=== PATIENT | male | born 1955 | race African-American/Black ===

== ENCOUNTER 2021-02-09 11:11 | Observation (INO) | payer OTHER ==
[2021-02-09] MEDS ORDERED: SODIUM CHLORIDE 1,000 ML IV STA (12:44)
[2021-02-09 13:54] LABS: BASO % 0.7 % (0-2.0); HEMATOCRIT 46.1 % (35.4-49); HEMOGLOBIN 15.8 GM/dL (11.7-16.9); LYMPH % 5.9 % (8-40); MCHC 34.2 g/dl (32.0-35.9); MEAN CELL VOLUME 90.7 fl (80-96); MEAN PLT VOLUME 8.5 fl (7.5-11.1); MONO % 11.6 % (3.8-10.2); NEUT % 81.8 % (42.8-82.8); PLATELET COUNT 128 10^3/uL (134-434); RBC 5.08 M/mm3 (4.00-5.60); RDW 13.6 % (11.9-15.9); WHITE BLOOD COUNT 4.1 K/mm3 (4.0-10.0)
[2021-02-09 14:16] LABS: SODIUM 141 mmol/L (136-145)
[2021-02-09 14:17] LABS: CALCIUM 9.5 mg/dL (8.5-10.1)
[2021-02-09 14:18] LABS: BLOOD UREA NITROGEN 27.1 mg/dL (7-18); CO2 30 mmol/L (21-32); GLUCOSE,RANDOM 83 mg/dL (74-106)
[2021-02-09 14:21] LABS: CREATININE 1.5 mg/dL (0.55-1.3); SGOT/AST 52 U/L (15-37); SGPT/ALT 64 U/L (13-61)
[2021-02-09 14:23] LABS: BILIRUBIN,TOTAL 0.6 mg/dL (0.2-1); TOT PROT 7.6 g/dl (6.4-8.2)
[2021-02-09 14:24] LABS: ALK PHOS 87 U/L (45-117)
[2021-02-09 14:25] LABS: LDH 261 U/L (87-246)
[2021-02-09 14:40] LABS: ANION GAP 5 MMOL/L (8-16); CHLORIDE 106 mmol/L (98-107)
[2021-02-10 01:52] VITALS: BMI 24.5
[2021-02-10] MEDS ORDERED: ACETAMINOPHEN 325 MG TABLET (FP) PO ONE (06:37)
[2021-02-10 08:50] LABS: BASO % 0.6 % (0-2.0); EOS % 0.1 % (0-4.5); HEMATOCRIT 45.9 % (35.4-49); HEMOGLOBIN 15.5 GM/dL (11.7-16.9); LYMPH % 17.6 % (8-40); MCH 31.4 pg (25.7-33.7); MCHC 33.8 g/dl (32.0-35.9); MEAN PLT VOLUME 9.1 fl (7.5-11.1); MONO % 13.9 % (3.8-10.2); NEUT % 67.8 % (42.8-82.8); PLATELET COUNT 116 10^3/uL (134-434); RBC 4.94 M/mm3 (4.00-5.60); RDW 13.4 % (11.9-15.9); WHITE BLOOD COUNT 4.2 K/mm3 (4.0-10.0)
[2021-02-10 09:19] LABS: ALBUMIN 3.7 g/dl (3.4-5.0); BLOOD UREA NITROGEN 27.5 mg/dL (7-18); MAGNESIUM 2.5 mg/dL (1.8-2.4)
[2021-02-10 09:22] LABS: CREATININE 1.6 mg/dL (0.55-1.3); PHOSPHOROUS 3.3 mg/dL (2.5-4.9)
[2021-02-10 09:23] LABS: BILIRUBIN,TOTAL 0.7 mg/dL (0.2-1)
[2021-02-10 09:24] LABS: TOT PROT 7.1 g/dl (6.4-8.2)
[2021-02-10] MEDS: SODIUM CHLORIDE 1,000 ML IV SCH (09:48)
[2021-02-10] MEDS ORDERED: DEXAMETHASONE SOD PHOSPHATE 10 MG/1 ML VIAL IVPUSH SCH (10:00)
[2021-02-10] MEDS ORDERED: AZILSARTAN MEDOXOMIL 40 MG PO SCH (10:00)
[2021-02-10] MEDS: ENOXAPARIN NA (PORCINE) 40 MG/0.4 ML DISP.SYRIN SQ SCH (12:38)
[2021-02-10] MEDS ORDERED: HEPARIN NA (PORCINE) 5,000 UNITS/ML 1ML VIAL SQ SCH (14:00)
[2021-02-10] MEDS ORDERED: CASIRIVIMAB/IMDEVIMAB 10 ML in SODIUM CHLORIDE 100 ML IVPB ONE (14:30)
[2021-02-10 14:57] LABS: LDH 237 U/L (87-246)
[2021-02-10 22:20] LABS: EPI CELLS 12 /uL (0-25.1); HYALINE CASTS 0 /uL (0-3.1); PH,URINE 5.5 (5.0-8.0); URINE APPEARANCE CLOUDY; URINE BACTERIA >9,000 /uL (0-1359); URINE BILIRUBIN NEGATIVE (NEGATIVE); URINE COLOR YELLOW; URINE GLUCOSE (UA) NEGATIVE (NEGATIVE); URINE KETONE TRACE (NEGATIVE); URINE LEUK ESTERASE 2+ (NEGATIVE); URINE NITRITE POSITIVE (NEGATIVE); URINE PROTEIN TRACE (NEGATIVE); URINE RBC 9 /uL (0-23.9); URINE WBC 79 /uL (0-25.8)
[2021-02-11] MEDS: SODIUM CHLORIDE 1,000 ML IV SCH (04:49)
[2021-02-11 07:40] LABS: BASO % 0.5 % (0-2.0); EOS % 0.1 % (0-4.5); HEMATOCRIT 43.2 % (35.4-49); HEMOGLOBIN 14.4 GM/dL (11.7-16.9); LYMPH % 17.1 % (8-40); MCH 30.9 pg (25.7-33.7); MCHC 33.4 g/dl (32.0-35.9); MEAN CELL VOLUME 92.6 fl (80-96); MEAN PLT VOLUME 9.2 fl (7.5-11.1); MONO % 12.3 % (3.8-10.2); PLATELET COUNT 113 10^3/uL (134-434); RBC 4.67 M/mm3 (4.00-5.60); RDW 13.4 % (11.9-15.9)
[2021-02-11 08:05] LABS: ALBUMIN 3.2 g/dl (3.4-5.0)
[2021-02-11 08:06] LABS: BLOOD UREA NITROGEN 25.6 mg/dL (7-18); CALCIUM 8.3 mg/dL (8.5-10.1)
[2021-02-11 08:07] LABS: MAGNESIUM 2.1 mg/dL (1.8-2.4)
[2021-02-11 08:10] LABS: PHOSPHOROUS 2.5 mg/dL (2.5-4.9)
[2021-02-11 08:11] LABS: CREATININE 1.3 mg/dL (0.55-1.3)
[2021-02-11 08:12] LABS: BILIRUBIN,TOTAL 0.4 mg/dL (0.2-1); TOT PROT 6.6 g/dl (6.4-8.2)
[2021-02-11] MEDS: ENOXAPARIN NA (PORCINE) 40 MG/0.4 ML DISP.SYRIN SQ SCH (09:51)
[2021-02-11 10:29] VITALS: TEMP 98.3
[2021-02-11 14:51] VITALS: PULSE 93
[2021-02-11 14:57] VITALS: BP 147/105
== END 2021-02-11 16:30 | disposition home or self-care (01) ==
LOC: JER 11:11 → INTOOBSV 12:42 → JERBED 12:42 → J4S 02-10 00:51
PROVIDERS: ADMIT Internal Medicine; ATTEND Internal Medicine
PROC: 3E033GC Introduction of Other Therapeutic Substance into Peripheral Vein, Percutaneous Approach (ICD-10-PCS; principal; 2021-02-09)
PROC: 3E023GC Introduction of Other Therapeutic Substance into Muscle, Percutaneous Approach (ICD-10-PCS; 2021-02-09)
PROC: 3E0337Z Introduction of Electrolytic and Water Balance Substance into Peripheral Vein, Percutaneous Approach (ICD-10-PCS; 2021-02-09)
DX: U07.1 COVID-19 (principal); Z29.9 Encounter for prophylactic measures, unspecified; Z85.46 Personal history of malignant neoplasm of prostate; B19.20 Unspecified viral hepatitis C without hepatic coma; R74.01 Elevation of levels of liver transaminase levels; N17.9 Acute kidney failure, unspecified; I71.4 Abdominal aortic aneurysm, without rupture
CPT/HCPCS: 36415; 70450-TC; 71045-TC-FY; 72125-TC; 80053; 81003; 82550; 82553; 82728; 82962; 83615; 83735; 84100; 84484; 85025; 85379; 86140; 86769; 87086; 87186; 87804; 93005; 93010; 96361; 96365; 96372; 96375; 99285-25; C9803; G0378; J1100; Q0240; U0003; U0005

== ENCOUNTER 2023-11-28 17:40 | Emergency (ER) | payer OTHER ==
[2023-11-28 17:54] VITALS: TEMP 97.8; BMI 25.4
[2023-11-28 19:17] LABS: HEMATOCRIT 46.7 % (35.4-49); HEMOGLOBIN 15.3 GM/dL (11.7-16.9); MCH 29.3 pg (25.7-33.7); MCHC 32.8 g/dl (32.0-35.9); MEAN CELL VOLUME 89.1 fl (80-96); MEAN PLT VOLUME 8.3 fl (7.5-11.1); PLATELET COUNT 203 10^3/uL (134-434); RBC 5.24 M/mm3 (4.00-5.60); RDW 14.2 % (11.9-15.9); WHITE BLOOD COUNT 7.1 K/mm3 (4.0-10.0)
[2023-11-28 19:44] LABS: POTASSIUM 4.2 mmol/L (3.5-5.1)
[2023-11-28 19:48] LABS: CALCIUM 9.5 mg/dL (8.5-10.1)
[2023-11-28 19:49] LABS: ALBUMIN 4.1 g/dl (3.4-5.0); BLOOD UREA NITROGEN 22.9 mg/dL (7-18)
[2023-11-28 19:52] LABS: CREATININE 1.4 mg/dL (0.55-1.3)
[2023-11-28 19:53] LABS: BILIRUBIN,TOTAL 0.6 mg/dL (0.2-1)
[2023-11-28 19:54] LABS: TOT PROT 7.4 g/dl (6.4-8.2)
[2023-11-28] MEDS ORDERED: hydrALAZINE HCL 20 MG/ML VIAL ONE (19:55)
[2023-11-28] MEDS: hydrALAZINE HCL 20 MG/ML VIAL IVPUSH ONE (20:01)
[2023-11-28] MEDS: SODIUM CHLORIDE 1,000 ML IV STA (20:02)
[2023-11-28 23:10] VITALS: RESP 20
[2023-11-29 20:37] VITALS: BP 180/108; PULSE 101
== END 2023-11-28 23:10 | disposition home or self-care (01) ==
LOC: JER 17:40
PROC: 3E033GC Introduction of Other Therapeutic Substance into Peripheral Vein, Percutaneous Approach (ICD-10-PCS; principal; 2023-11-28)
PROC: 3E0337Z Introduction of Electrolytic and Water Balance Substance into Peripheral Vein, Percutaneous Approach (ICD-10-PCS; 2023-11-28)
DX: I10 Essential (primary) hypertension (principal)
CPT/HCPCS: 36415; 80053; 84484; 85027; 93005; 93010; 99284-25

== ENCOUNTER 2023-12-02 09:49 | Observation (INO) | payer OTHER ==
[2023-12-02 09:55] VITALS: BMI 25.1
[2023-12-02] MEDS ORDERED: MECLIZINE HCL 25 MG TABLET (FP) ONE (10:06)
[2023-12-02] MEDS: LACTATED RINGERS SOLUTION 1000 ML INFUS.BAG IV ONE (10:48)
[2023-12-02] MEDS: MECLIZINE HCL 25 MG TABLET (FP) PO ONE (10:48)
[2023-12-02 11:47] LABS: INR 1.02 (0.83-1.09); PROTHROMBIN TIME (PATIENT) 11.5 SEC (9.7-13.0)
[2023-12-02 11:48] LABS: ACTIVATED PTT 31.6 SECONDS (25.2-36.5)
[2023-12-02 11:53] LABS: BASO % 0.4 % (0-2.0); EOS % 0.7 % (0-4.5); HEMATOCRIT 48.9 % (35.4-49); HEMOGLOBIN 16.4 GM/dL (11.7-16.9); LYMPH % 29.1 % (8-40); MCH 29.9 pg (25.7-33.7); MCHC 33.6 g/dl (32.0-35.9); MEAN PLT VOLUME 8.9 fl (7.5-11.1); MONO % 10.3 % (3.8-10.2); NEUT % 59.5 % (42.8-82.8); PLATELET COUNT 219 10^3/uL (134-434); RBC 5.49 M/mm3 (4.00-5.60); RDW 14.5 % (11.9-15.9); WHITE BLOOD COUNT 4.8 K/mm3 (4.0-10.0)
[2023-12-02 12:04] LABS: POTASSIUM 4.3 mmol/L (3.5-5.1)
[2023-12-02 12:06] LABS: ALBUMIN 4.4 g/dl (3.4-5.0); BLOOD UREA NITROGEN 23.2 mg/dL (7-18); CALCIUM 9.4 mg/dL (8.5-10.1); MAGNESIUM 2.4 mg/dL (1.8-2.4)
[2023-12-02 12:09] LABS: CREATININE 1.3 mg/dL (0.55-1.3)
[2023-12-02 12:10] LABS: TOT PROT 7.9 g/dl (6.4-8.2)
[2023-12-02] MEDS ORDERED: diazePAM 5 MG TABLET ONE (12:48)
[2023-12-02] MEDS: diazePAM 2 MG TABLET PO ONE (13:04)
[2023-12-02] MEDS ORDERED: MECLIZINE HCL 25 MG TABLET (FP) PO PRN (13:54)
[2023-12-02 14:12] LABS: CHOLESTEROL 183 mg/dL (50-200)
[2023-12-02] MEDS ORDERED: ATORVASTATIN CA 40 MG TABLET (FP) ONE (14:12)
[2023-12-02] MEDS ORDERED: ASPIRIN 81 MG CHEWABLE TABLETS ONE (14:12)
[2023-12-02 14:13] LABS: LDL CHOLESTEROL (ONLY SJRH) 106 mg/dL (5-100)
[2023-12-02 14:15] LABS: HDL CHOLESTEROL 53 mg/dL (40-60)
[2023-12-02] MEDS: ASPIRIN 81 MG CHEWABLE TABLETS PO ONE (14:18)
[2023-12-02] MEDS: ATORVASTATIN CA 40 MG TABLET (FP) PO ONE (14:18)
[2023-12-02] MEDS ORDERED: amLODIPine BESYLATE 5 MG TABLET (FP) ONE (15:14)
[2023-12-02] MEDS ORDERED: LOSARTAN POTASSIUM 50 MG TABLET ONE (15:14)
[2023-12-02] MEDS ORDERED: amLODIPine BESYLATE 5 MG TABLET (FP) PO SCH (15:15)
[2023-12-02] MEDS: LOSARTAN POTASSIUM 50 MG TABLET PO SCH (15:40)
[2023-12-02] MEDS: amLODIPine BESYLATE 5 MG TABLET (FP) PO SCH (15:40)
[2023-12-02] MEDS: HYDROCHLOROTHIAZIDE 25 MG TABLET (FP) PO SCH (20:45)
[2023-12-03 08:14] LABS: BASO % 0.5 % (0-2.0); HEMATOCRIT 48.5 % (35.4-49); HEMOGLOBIN 16.7 GM/dL (11.7-16.9); LYMPH % 49.2 % (8-40); MCH 30.4 pg (25.7-33.7); MCHC 34.5 g/dl (32.0-35.9); MEAN CELL VOLUME 88.1 fl (80-96); MEAN PLT VOLUME 8.6 fl (7.5-11.1); MONO % 12.8 % (3.8-10.2); NEUT % 35.5 % (42.8-82.8); PLATELET COUNT 212 10^3/uL (134-434); RDW 14.5 % (11.9-15.9); WHITE BLOOD COUNT 3.9 K/mm3 (4.0-10.0)
[2023-12-03] MEDS: MECLIZINE HCL 25 MG TABLET (FP) PO SCH (08:22)
[2023-12-03 08:26] LABS: POTASSIUM 4.1 mmol/L (3.5-5.1)
[2023-12-03 08:30] LABS: BLOOD UREA NITROGEN 20.9 mg/dL (7-18)
[2023-12-03 08:31] LABS: MAGNESIUM 2.5 mg/dL (1.8-2.4)
[2023-12-03 08:33] LABS: CALCIUM 9.5 mg/dL (8.5-10.1); PHOSPHOROUS 3.6 mg/dL (2.5-4.9)
[2023-12-03 08:37] LABS: CREATININE 1.2 mg/dL (0.55-1.3)
[2023-12-03] MEDS: ENOXAPARIN NA (PORCINE) 40 MG/0.4 ML DISP.SYRIN SQ SCH (10:10)
[2023-12-03] MEDS: ONDANSETRON 4 MG/2 ML VIAL IVPUSH ONE (22:33)
[2023-12-04 19:21] LABS: EPI CELLS 10 /uL (0-25.1); HYALINE CASTS 1 /uL (0-3.1); PH,URINE 5.5 (5.0-8.0); URINE APPEARANCE CLEAR; URINE BACTERIA >9,000 /uL (0-1359); URINE BILIRUBIN NEGATIVE (NEGATIVE); URINE COLOR YELLOW; URINE GLUCOSE (UA) NEGATIVE (NEGATIVE); URINE KETONE NEGATIVE (NEGATIVE); URINE LEUK ESTERASE 2+ (NEGATIVE); URINE NITRITE POSITIVE (NEGATIVE); URINE PROTEIN NEGATIVE (NEGATIVE); URINE RBC 106 /uL (0-23.9); URINE UROBILINOGEN 0.2 mg/dL (0.2-1.0); URINE WBC 89 /uL (0-25.8)
[2023-12-05 07:26] LABS: HEMATOCRIT 48.6 % (35.4-49); HEMOGLOBIN 16.4 GM/dL (11.7-16.9); MCH 30.1 pg (25.7-33.7); MCHC 33.7 g/dl (32.0-35.9); MEAN CELL VOLUME 89.2 fl (80-96); MEAN PLT VOLUME 8.9 fl (7.5-11.1); PLATELET COUNT 198 10^3/uL (134-434); RBC 5.45 M/mm3 (4.00-5.60); RDW 14.2 % (11.9-15.9); WHITE BLOOD COUNT 4.7 K/mm3 (4.0-10.0)
[2023-12-05 07:42] LABS: POTASSIUM 3.9 mmol/L (3.5-5.1)
[2023-12-05 07:45] LABS: ALBUMIN 3.9 g/dl (3.4-5.0); MAGNESIUM 2.1 mg/dL (1.8-2.4)
[2023-12-05 07:48] LABS: CREATININE 1.4 mg/dL (0.55-1.3); PHOSPHOROUS 3.6 mg/dL (2.5-4.9)
[2023-12-05 07:49] LABS: BILIRUBIN,TOTAL 0.6 mg/dL (0.2-1); TOT PROT 7.1 g/dl (6.4-8.2)
[2023-12-05] MEDS: CEFTRIAXONE 1 GM in DEXTROSE 5%-WATER - 50 ML IVPB SCH (11:00)
[2023-12-05 14:10] VITALS: RESP 16
[2023-12-05 15:05] VITALS: BP 147/107; PULSE 106
[2023-12-05 15:07] VITALS: TEMP 98.6
== END 2023-12-05 18:05 | disposition home or self-care (01) ==
LOC: JER 09:49 → JERBED 13:07 → J4S 16:52
PROVIDERS: ADMIT Internal Medicine; ATTEND Nurse Practitioner Family
PROC: 3E03329 Introduction of Other Anti-infective into Peripheral Vein, Percutaneous Approach (ICD-10-PCS; principal; 2023-12-02)
PROC: 3E0337Z Introduction of Electrolytic and Water Balance Substance into Peripheral Vein, Percutaneous Approach (ICD-10-PCS; 2023-12-02)
PROC: 3E033GC Introduction of Other Therapeutic Substance into Peripheral Vein, Percutaneous Approach (ICD-10-PCS; 2023-12-02)
DX: R42 Dizziness and giddiness (principal); H55.00 Unspecified nystagmus; I10 Essential (primary) hypertension; N40.0 Benign prostatic hyperplasia without lower urinary tract symptoms; Z85.46 Personal history of malignant neoplasm of prostate; Z86.19 Personal history of other infectious and parasitic diseases; Z87.738 Personal history of other specified (corrected) congenital malformations of digestive system; W18.39XA Other fall on same level, initial encounter; Y93.89 Activity, other specified; Y92.89 Other specified places as the place of occurrence of the external cause
CPT/HCPCS: 36415; 70450-TC; 70551-TC; 80048; 80053; 80061; 81003; 83036; 83735; 84100; 84443; 84484; 85025; 85027; 85610; 85730; 87086; 93005; 93010; 93880-TC; 96365; 96375; 99285-25; G0378